=== PATIENT | female | born 1960 | race Caucasian/White ===

== ENCOUNTER → 2017-03-30 | Outpatient (CLI) | payer SELFPAY ==
[~2017-03-30] MED LIST: ESTR1TAB24; ONDA-42 SL
--- NOTE | 2017-03-30 15:38 | Diagnostic Imaging Report ---
PROCEDURE: US Thyroid. TECHNIQUE: Multiple real-time grayscale images were obtained of the thyroid in various projections. INDICATION: Followup thyroid nodules. COMPARISON: 01/10/2016. FINDINGS: The right thyroid lobe is 5.2 x 1.6 x 1.7 cm. The left thyroid lobe is 4.3 x 1.3 x 1.6 cm. There is a dominant nodule in the inferior aspect of the right lobe measuring 2.5 x 1.2 x 1.4 cm. It appears to have calcifications and cystic components. There is internal vascularity as well. The overall size is minimally smaller compared to the previous exam. Other smaller nodules are seen in the right lobe and there is a nodule in the left lobe measuring 0.8 cm similar to the previous exam. IMPRESSION: Multiple thyroid nodules with a complex partially cystic 2.5 cm thyroid mass in the right lobe with overall similar appearance compared to 01/10/2016 and minimal decrease in size. This was evaluated with a biopsy previously. Correlate clinically. Dictated by: Dictated on workstation # [id number]
== END ==
LOC: RAD 10:46
PROVIDERS: ATTEND Internal Medicine
DX: E04.2 Nontoxic multinodular goiter (principal)
CPT/HCPCS: 76536

== ENCOUNTER → 2019-04-20 | Outpatient (CLI) | payer BC ==
--- NOTE | 2019-04-21 14:13 | Diagnostic Imaging Report ---
INDICATION: Routine screening. Comparison is made with prior mammograms from 09/18/2015 and 02/02/2013. 2-D and 3-D bilateral screening mammography was performed. The current study was also evaluated with a Computer Aided Detection (CAD) system. 3-D tomosynthesis was also performed and reviewed. FINDINGS: Both breasts are heterogeneously dense, limiting the sensitivity of mammography. The parenchymal pattern is stable. No mass or malignant-appearing microcalcifications are seen. Occasional benign-appearing calcifications are noted. The axillae are unremarkable. IMPRESSION: No mammographic features suspicious for malignancy are identified. ACR BI-RADS Category 2: Benign findings. Result letter will be mailed to the patient. Note: At least 10% of breast cancer is not imaged by mammography. Dictated by: Dictated on workstation # [id number]
== END ==
LOC: RAD 15:33
PROVIDERS: ATTEND Internal Medicine
DX: Z12.31 Encounter for screening mammogram for malignant neoplasm of breast (principal)
CPT/HCPCS: 77067